=== PATIENT | male | born 1990 | race Caucasian/White ===

== ENCOUNTER 2023-09-27 08:17 | Day surgery (SDC) | payer OTHER, SELFPAY ==
[2023-09-27 14:53] VITALS: BMI 21.5
== END 2023-09-27 09:51 | disposition other institution (70) ==
LOC: CATH 08:17
PROVIDERS: ATTENDING PHYSICIAN Internal Medicine Cardiovascular Disease
DX: I08.1 Rheumatic disorders of both mitral and tricuspid valves (principal); R93.1 Abnormal findings on diagnostic imaging of heart and coronary circulation; R00.0 Tachycardia, unspecified; Z87.891 Personal history of nicotine dependence
CPT/HCPCS: 93312; 93320; 93325